=== PATIENT | female | born 1985 | race Two or more races ===

== ENCOUNTER 2017-03-06 07:16 | Emergency (ER) | payer SELFPAY ==
[~2017-03-06 07:16] MED LIST: ACET-704 PO; IBUP-1060 PO
[2017-03-06 07:32] VITALS: BP 129/59
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
[2017-03-06 08:05] LABS: BACTERIA,URINE 0 /HPF (0-FEW); BILIRUBIN,URINE NEGATIVE (NEG); GLUCOSE,URINE NEGATIVE (NEG); NITRITE,URINE NEGATIVE (NEG); PROTEIN,URINE NEGATIVE (NEG-TRACE); SQUAMOUS EPITHELIAL CELL,UR MANY /LPF; UROBILINOGEN,URINE 0.2 mg/dL (0.2 mg/dL)
[2017-03-06] MEDS ORDERED: METR500T PO (08:33)
--- NOTE | 2017-03-11 15:28 | VNOTE ---
CALL BACK NOTE CALL BACK Microbiology 03/06/17 Wet Prep - Final, Complete Patient is positive for chlamydia and was not treated. I attempted to call patient, her phone does not accept calls. LA GOLDSTEIN APRN March 11, 2017 15:28
== END 2017-03-06 08:47 | disposition home or self-care (01) ==
LOC: ER 07:16
DX: N92.6 Irregular menstruation, unspecified (principal); N76.0 Acute vaginitis
CPT/HCPCS: 81001; 81025; 87491; 87591; 99284; Q0111

== ENCOUNTER 2018-06-13 06:02 | Observation (INO) | payer SELFPAY ==
[2018-06-13] MEDS ORDERED: ACETAMINOPHEN 325 MG TABLET. PO (06:30)
[2018-06-13] MEDS ORDERED: IV RINGERS,LACTATED 1000ML 1,000 ML IV (06:30)
[2018-06-13 06:45] LABS: BILIRUBIN,URINE NEGATIVE (NEG); CLARITY,URINE CLEAR; COLOR,URINE YELLOW; GLUCOSE,URINE NEGATIVE (NEG); NITRITE,URINE NEGATIVE (NEG); PROTEIN,URINE NEGATIVE (NEG-TRACE)
[2018-06-13 07:15] LABS: BARBITURATES NEG (NEG); BENZODIAZEPINES NEG (NEG); CANNABINOIDS NEG (NEG); COCAINE NEG (NEG); METHADONE NEG (NEG); OPIATES NEG (NEG); PHENCYCLIDINE NEG (NEG)
[2018-06-13 07:16] LABS: BACTERIA,URINE MANY /HPF (0-FEW); SQUAMOUS EPITHELIAL CELL,UR MANY /LPF
[2018-06-13 07:18] LABS: AMPHETAMINE/METHAMPHETAMINE NEG (NEG); ETHANOL, URINE NEG (NEG)
== END 2018-06-13 07:53 | disposition home or self-care (01) ==
LOC: 3 SO LND 06:02
DX: O26.893 Other specified pregnancy related conditions, third trimester (principal); R10.2 Pelvic and perineal pain; Z3A.34 34 weeks gestation of pregnancy; Z79.899 Other long term (current) drug therapy
CPT/HCPCS: 80307; 81001; 87086; G0378; G0379

== ENCOUNTER 2018-10-31 11:47 | Emergency (ER) | payer SELFPAY ==
[~2018-10-31] VITALS: Ht 165.1 cm; Wt 84.1 kg
[~2018-10-31 11:47] MED LIST changes: +HYDR-3164 PO; +METR500T PO; +NAPR-514 PO
[2018-10-31] MEDS ORDERED: fentaNYL PF VIAL 100 MCG/2 ML VIAL ONE (12:21)
[2018-10-31 12:29] LABS: BILIRUBIN,URINE NEGATIVE (NEG); CLARITY,URINE CLEAR; COLOR,URINE YELLOW; NITRITE,URINE NEGATIVE (NEG); PROTEIN,URINE NEGATIVE (NEG-TRACE); UROBILINOGEN,URINE 0.2 mg/dL (0.2 mg/dL)
[2018-10-31] MEDS ORDERED: fentaNYL PF VIAL 100 MCG/2 ML VIAL IV ONE (12:30)
[2018-10-31] MEDS ORDERED: ONDANSETRON PF 4 MG/2 ML VIAL. IV ONE (12:30)
[2018-10-31 12:31] LABS: BASO % 1 % (0-3); EOS # 0.1 x10^3/uL (0.0-0.7); EOS % 1 % (0-3); HEMATOCRIT 39.7 % (36.0-47.0); HEMOGLOBIN 13.6 g/dL (12.0-15.5); LYMPH % 36 % (24-48); MEAN CORPUSCULAR HEMOGLOBIN 29 pg (25-35); MEAN CORPUSCULAR HGB CONC 34 g/dL (31-37); MEAN CORPUSCULAR VOLUME 85 fL (79-100); MONO # 0.4 x10^3/uL (0.0-1.1); MONO % 7 % (0-9); NEUT # 3.1 x10^3uL (1.8-7.7); NEUT % 56 % (31-73); PLATELET COUNT 275 x10^3/uL (140-400); RED BLOOD COUNT 4.69 x10^6/uL (3.50-5.40); RED CELL DISTRIBUTION WIDTH 17.1 % (11.5-14.5); WHITE BLOOD COUNT 5.6 x10^3/uL (4.0-11.0)
[2018-10-31 12:39] LABS: CALCIUM 9.1 mg/dL (8.5-10.1); CREATININE 0.6 mg/dL (0.6-1.0); GFR 115.9; POTASSIUM 3.7 mmol/L (3.5-5.1)
[2018-10-31 12:41] LABS: SQUAMOUS EPITHELIAL CELL,UR MOD /LPF
[2018-10-31 12:43] LABS: AMORPHOUS SEDIMENT,UR PRESENT /HPF; BACTERIA,URINE FEW /HPF (0-FEW); RBC,URINE 0 /HPF (0-2)
[2018-10-31 12:45] LABS: DIRECT BILIRUBIN 0.1 mg/dL (0.0-0.2); TOTAL BILIRUBIN 0.5 mg/dL (0.2-1.0); TOTAL PROTEIN 7.7 g/dL (6.4-8.2)
[2018-10-31] MEDS ORDERED: MORPHINE SULFATE 10 MG/ML VIAL. IV ONE (13:00)
[2018-10-31] MEDS ORDERED: IOHEXOL 300 MG/ML 100ML VIAL. IV ONE (13:00)
[2018-10-31] MEDS ORDERED: CONTRAST GIVEN. MC PRN (13:15)
--- NOTE | 2018-10-31 13:28 | RAD ---
PQRS Compliance Statement: One or more of the following individualized dose reduction techniques were utilized for this examination: 1. Automated exposure control 2. Adjustment of the mA and/or kV according to patient size 3. Use of iterative reconstruction technique CT abdomen/pelvis with contrast 10/31/2018 12:58 PM INDICATION: Abdominal pain for 3 days. Right lower quadrant abdominal pain COMPARISON: None available TECHNIQUE: Multiple axial CT images of the abdomen and pelvis were obtained after the intravenous administration of 75 mL Omnipaque 300. Coronal and sagittal reformats are provided. FINDINGS: Lung bases are clear. Heart size is within normal limits. No suspicious hepatic lesions are identified. Spleen is normal in appearance. Adrenal glands are normal. No peripancreatic inflammation. Gallbladder is present without adjacent inflammatory changes. The abdominal aorta is normal in course and caliber. There are no pathologically enlarged lymph nodes in the abdomen and pelvis. There is no abdominal free fluid. There is no free intraperitoneal air. Small and large bowel are normal in caliber. There is no evidence for bowel obstruction. There are no pericolonic inflammatory changes. A normal, nondilated appendix is visualized without adjacent inflammatory changes. Calcified mesenteric lymph nodes are identified. The kidneys enhance symmetrically. There is no suspicious renal mass. There is no hydronephrosis. There are no suspected calculi within the kidneys, ureters or urinary bladder. There is a right adnexal cystic lesion measuring 7.7 x 5.5 cm. Follicular changes are identified in the left adnexa. Uterus is normal by CT. No suspicious osseous abnormality is identified. IMPRESSION: 1. Right adnexal cystic lesion measures 7.7 x 5.5 cm. Further evaluation with ultrasound is recommended to ensure perfusion to the ovary. Gynecologic evaluation may be of benefit. 2. Appendix is normal. Electronically signed by: Judi Jacobsen MD (10/31/2018 1:24 PM) [id number]
--- NOTE | 2018-10-31 14:11 | PHYS DOC ---
Past Medical History Past Medical History: No Pertinent History Past Surgical History: No Surgical History Alcohol Use: None Drug Use: None Adult General Chief Complaint Chief Complaint: ABDOMINAL PAIN HPI HPI Patient is a 33 year old female who presents with abdominal pain. Patient has had pain in the right lower quadrant over the last three days. Pain became worse this morning. No fever or chills. No vomiting but she does c/o nausea. No prior hx of similar symptoms. No prior abdominal surgical hx. Denies urinary symptoms or vaginal symptoms. LMP finished three days earlier. Review of Systems Review of Systems Constitutional: Denies fever or chills Eyes: Denies change in visual acuity HENT: Denies nasal congestion Respiratory: Denies cough or shortness of breath Cardiovascular: No additional information not addressed in HPI GI: as documented above : Denies dysuria Musculoskeletal: Denies back pain Integument: Denies rash or skin lesions Neurologic: Denies headache All other systems were reviewed and found to be within normal limits, except as documented in this note. Current Medications Current Medications Current Medications Medications (Trade) Dose Ordered Sig/Rupal Start Time Stop Time Status Last Admin Dose Admin Ceftriaxone Sodium (Rocephin) 1 gm 1X ONCE 10/31/18 15:15 10/31/18 15:16 DC 10/31/18 15:15 1 GM Fentanyl Citrate (Fentanyl 2ml Vial) 100 mcg STK-MED ONCE 10/31/18 12:21 10/31/18 12:23 DC Info (CONTRAST GIVEN -- Rx MONITORING) 1 each PRN DAILY PRN 10/31/18 13:15 11/02/18 13:14 Iohexol (Omnipaque 300 Mg/ml) 75 ml 1X ONCE 10/31/18 13:00 10/31/18 13:02 DC 10/31/18 13:05 75 ML Ketorolac Tromethamine (Toradol 30mg Vial) 30 mg 1X ONCE 10/31/18 15:15 10/31/18 15:16 DC 10/31/18 15:15 30 MG Morphine Sulfate (Morphine Sulfate) 4 mg 1X ONCE 10/31/18 14:30 10/31/18 14:31 DC 10/31/18 14:31 4 MG Ondansetron HCl (Zofran) 4 mg 1X ONCE 10/31/18 12:30 10/31/18 12:31 DC 10/31/18 12:25 4 MG Allergies Allergies Allergies Coded Allergies Type Severity Reaction Last Updated Verified No Known Drug Allergies 05/17/14 No Physical Exam Physical Exam Constitutional: Well developed, well nourished, no acute distress, non-toxic appearance HENT: Normocephalic, atraumatic, bilateral external ears normal, oropharynx moist Eyes: PERRLA, EOMI, conjunctiva normal Neck: Normal range of motion, no tenderness Cardiovascular:Heart rate regular rhythm, no murmur Lungs & Thorax: Bilateral breath sounds clear to auscultation Abdomen: Bowel sounds normal, soft, TTP over right lower quadrant Skin: Warm, dry, no erythema Back: No tenderness Extremities: No tenderness, no cyanosis Neurologic: Alert and oriented X 3, normal motor function, normal sensory function Psychologic: Affect normal, judgement normal Pelvic: normal female external genitalia, vaginal mucosa is moist and uninflamed. cervical OS with visualized with some clear, physiologic-appearing discharge. No CMT. Right adnexa is tender to manipulation. left adnexa normal. Current Patient Data Vital Signs Vital Signs Date Time Temp Pulse Resp B/P (MAP) Pulse Ox O2 Delivery O2 Flow Rate FiO2 10/31/18 14:31 22 99 Room Air 10/31/18 13:00 58 149/65 (93) 10/31/18 11:49 98.2 98.2 Lab Values Laboratory Tests Test 10/31/18 11:45 10/31/18 12:03 10/31/18 12:15 Urine Collection Type Unknown Urine Color Yellow Urine Clarity Clear Urine pH 6.0 Urine Specific [place] 1.025 Urine Protein Negative mg/dL (NEG-TRACE) Urine Glucose (UA) Negative mg/dL (NEG) Urine Ketones (Stick) Negative mg/dL (NEG) Urine Blood Negative (NEG) Urine Nitrite Negative (NEG) Urine Bilirubin Negative (NEG) Urine Urobilinogen Dipstick 0.2 mg/dL (0.2 mg/dL) Urine Leukocyte Esterase Small (NEG) Urine RBC 0 /HPF (0-2) Urine WBC 11-20 /HPF (0-4) Urine Squamous Epithelial Cells Mod /LPF Urine Amorphous Sediment Present /HPF Urine Bacteria Few /HPF (0-FEW) Urine Mucus Marked /LPF POC Urine HCG, Qualitative Hcg negative (Negative) White Blood Count 5.6 x10^3/uL (4.0-11.0) Red Blood Count 4.69 x10^6/uL (3.50-5.40) Hemoglobin 13.6 g/dL (12.0-15.5) Hematocrit 39.7 % (36.0-47.0) Mean Corpuscular Volume 85 fL (79-100) Mean Corpuscular Hemoglobin 29 pg (25-35) Mean Corpuscular Hemoglobin Concent 34 g/dL (31-37) Red Cell Distribution Width 17.1 % (11.5-14.5) H Platelet Count 275 x10^3/uL (140-400) Neutrophils (%) (Auto) 56 % (31-73) Lymphocytes (%) (Auto) 36 % (24-48) Monocytes (%) (Auto) 7 % (0-9) Eosinophils (%) (Auto) 1 % (0-3) Basophils (%) (Auto) 1 % (0-3) Neutrophils # (Auto) 3.1 x10^3uL (1.8-7.7) Lymphocytes # (Auto) 2.0 x10^3/uL (1.0-4.8) Monocytes # (Auto) 0.4 x10^3/uL (0.0-1.1) Eosinophils # (Auto) 0.1 x10^3/uL (0.0-0.7) Basophils # (Auto) 0.0 x10^3/uL (0.0-0.2) Sodium Level 139 mmol/L (136-145) Potassium Level 3.7 mmol/L (3.5-5.1) Chloride Level 103 mmol/L (98-107) Carbon Dioxide Level 24 mmol/L (21-32) Anion Gap 12 (6-14) Blood Urea Nitrogen 15 mg/dL (7-20) Creatinine 0.6 mg/dL (0.6-1.0) Estimated GFR (Cockcroft-Gault) 115.9 Glucose Level 91 mg/dL (70-99) Calcium Level 9.1 mg/dL (8.5-10.1) Total Bilirubin 0.5 mg/dL (0.2-1.0) Direct Bilirubin 0.1 mg/dL (0.0-0.2) Aspartate Amino Transferase (AST) 20 U/L (15-37) Alanine Aminotransferase (ALT) 29 U/L (14-59) Alkaline Phosphatase 65 U/L (46-116) Total Protein 7.7 g/dL (6.4-8.2) Albumin 4.0 g/dL (3.4-5.0) Lipase 143 U/L (73-393) Laboratory Tests 10/31/18 12:15 Laboratory Tests 10/31/18 12:15 Microbiology 10/31/18 Wet Prep - Final, Complete EKG EKG [] Radiology/Procedures Radiology/Procedures FINDINGS: Lung bases are clear. Heart size is within normal limits. No suspicious hepatic lesions are identified. Spleen is normal in appearance. Adrenal glands are normal. No peripancreatic inflammation. Gallbladder is present without adjacent inflammatory changes. The abdominal aorta is normal in course and caliber. There are no pathologically enlarged lymph nodes in the abdomen and pelvis. There is no abdominal free fluid. There is no free intraperitoneal air. Small and large bowel are normal in caliber. There is no evidence for bowel obstruction. There are no pericolonic inflammatory changes. A normal, nondilated appendix is visualized without adjacent inflammatory changes. Calcified mesenteric lymph nodes are identified. The kidneys enhance symmetrically. There is no suspicious renal mass. There is no hydronephrosis. There are no suspected calculi within the kidneys, ureters or urinary bladder. There is a right adnexal cystic lesion measuring 7.7 x 5.5 cm. Follicular changes are identified in the left adnexa. Uterus is normal by CT. No suspicious osseous abnormality is identified. IMPRESSION: 1. Right adnexal cystic lesion measures 7.7 x 5.5 cm. Further evaluation with ultrasound is recommended to ensure perfusion to the ovary. Gynecologic evaluation may be of benefit. 2. Appendix is normal. Pelvic US: TRANSABDOMINAL SCAN Uterus measures 9.6 cm long by 5.7 cm AP by 6.0 cm wide. Ovaries cannot be visualized. TRANSVAGINAL SCAN Uterus: Endometrium measures 15 mm AP diameter. Homogeneous and mildly hyperechoic echotexture of the endometrium. No focal uterine mass is seen. Right ovary: * Size: 8.5 cm long axis. * Blood flow: Intact * Appearance: Contains a large 7.5 cm cyst. Left ovary: * Size: 3.0 cm long axis. * Blood flow: Intact * Appearance: No significant mass. Free fluid: None visualized IMPRESSION: 1. Large right ovarian cyst, measures 7.5 cm. Since cysts of this size can be difficult to completely assess with ultrasound, recommend consideration of outpatient MRI or surgical consultation, and short-term follow-up ultrasound. 2. Mild endometrial thickening at 15 mm. This could be a normal appearance for secretory phase of the menstrual cycle, and could also be further assessed on follow-up ultrasound. Course & Med Decision Making Course & Med Decision Making Pertinent Labs and Imaging studies reviewed. (See chart for details) Patient was evaluated in the emergency department for abdominal pain. Her workup was positive for pyuria. She was also noted to have a 7.5 cm cyst on the right ovary. The ovaries both had good flow. There were no additional acute findings. No leukocytosis. Pelvic exam was unremarkable. Pain was controlled in the ER after multiple doses of fentanyl and morphine which the patient tolerated very well. She had already taken norco at home without relief of symptoms. She is d/c'd to home with reglan, levaquin, ibuprofen and percocet for severe pain. I did discuss this patient with bottom ironer [employer]ATOR, Dr. Bailey, who was in agreement with the plan of care. Dragon Disclaimer Dragon Disclaimer This electronic medical record was generated, in whole or in part, using a voice recognition dictation system. Departure Departure Disposition: HOME, SELF-CARE Condition: GOOD Referrals: NO PCP (PCP) Scripts Oxycodone/Apap 5-325 (PERCOCET 5-325 MG TABLET ) 1 Each Tablet 2 EACH PO QID PRN for SEVERE PAIN, #25 TAB pain Prov: MEERY BUTTS DO 10/31/18 Levofloxacin (LEVAQUIN) 500 Mg Tablet 500 MG PO DAILY for 5 Days, #5 TAB Prov: EMERY BUTTS DO 10/31/18 Metoclopramide Hcl (REGLAN) 10 Mg Tablet 1 TAB PO TID for nausea, #10 TAB Prov: EMERY BUTTS DO 10/31/18 Ibuprofen (IBUPROFEN) 800 Mg Tablet 800 MG PO PRN TID PRN for PAIN, #30 TAB take with food or milk to avoid upsetting stomach Prov: EMERY BUTTS DO 10/31/18 EMERY BUTTS DO Oct 31, 2018 14:11
[2018-10-31] MEDS ORDERED: MORPHINE SULFATE 4 MG/ML VIAL. IV ONE (14:30)
--- NOTE | 2018-10-31 14:31 | RAD ---
Pelvic ultrasound Clinical Indication:rt adnexal mass. . TRANSABDOMINAL SCAN Uterus measures 9.6 cm long by 5.7 cm AP by 6.0 cm wide. Ovaries cannot be visualized. TRANSVAGINAL SCAN Uterus: Endometrium measures 15 mm AP diameter. Homogeneous and mildly hyperechoic echotexture of the endometrium. No focal uterine mass is seen. Right ovary: * Size: 8.5 cm long axis. * Blood flow: Intact * Appearance: Contains a large 7.5 cm cyst. Left ovary: * Size: 3.0 cm long axis. * Blood flow: Intact * Appearance: No significant mass. Free fluid: None visualized IMPRESSION: 1. Large right ovarian cyst, measures 7.5 cm. Since cysts of this size can be difficult to completely assess with ultrasound, recommend consideration of outpatient MRI or surgical consultation, and short-term follow-up ultrasound. 2. Mild endometrial thickening at 15 mm. This could be a normal appearance for secretory phase of the menstrual cycle, and could also be further assessed on follow-up ultrasound. Electronically signed by: Von Marquez MD (10/31/2018 2:27 PM) [id number]
[2018-10-31 15:00] VITALS: BP 114/55
[2018-10-31] MEDS ORDERED: METO10TA81 PO (15:02)
[2018-10-31] MEDS ORDERED: IBUP-1060 PO (15:02)
[2018-10-31] MEDS ORDERED: HYDR-3164 PO (15:02)
[2018-10-31] MEDS ORDERED: LEVO500T59 PO (15:08)
[2018-10-31] MEDS ORDERED: cefTRIAXone IV Push 1 GM VIAL. IVP ONE (15:15)
[2018-10-31] MEDS ORDERED: KETOROLAC 30 MG/ML VIAL. IV ONE (15:15)
[2018-10-31] MEDS ORDERED: OXYC1TAB15 PO (15:16)
[2018-11-02 19:15] LABS: GC PROBE Negative (Negative)
== END 2018-10-31 15:36 | disposition home or self-care (01) ==
LOC: ER 11:47
DX: N83.201 Unspecified ovarian cyst, right side (principal)
CPT/HCPCS: 36415; 74177; 76830; 76856; 80048; 80076; 81001; 81025; 83690; 85025; 87491; 87591; 96374; 96375; 96376; 99284; J0696; J1885; J2270; J2405; J3010; Q0111; Q9967

== ENCOUNTER 2019-10-21 14:40 | Emergency (ER) | payer SELFPAY ==
[~2019-10-21] VITALS: Ht 157.5 cm; Wt 68.0 kg
[~2019-10-21 14:40] MED LIST changes: +LEVO500T59 PO; +METO10TA81 PO; +OXYC1TAB15 PO
[2019-10-21 15:10] VITALS: BP 125/65
[2019-10-21] MEDS ORDERED: AMOX1TAB61 PO (15:30)
[2019-10-21] MEDS ORDERED: CODE1CAP8 PO (15:30)
--- NOTE | 2019-10-21 15:31 | PHYS DOC ---
Past Medical History Past Medical History: No Pertinent History Past Surgical History: No Surgical History Alcohol Use: None Drug Use: None Adult General Chief Complaint Chief Complaint: FLU SYMPTOM HPI HPI Patient is a 34-year-old female who presents with complaint of headache, dry cough, sore throat and sinus pain and drainage. Patient states that she's been running a fever at home over the last few days. She states that symptoms started 4 days ago. She denies any nausea or vomiting.[] Review of Systems Review of Systems Constitutional: Positive fever and chills [] HENT: Positive congestion and sore throat [] Respiratory: Admits to dry cough without shortness of breath [] Cardiovascular: No additional information not addressed in HPI [] Integument: Denies rash or skin lesions [] Neurologic: Complains of headache without focal weakness or sensory changes [] Allergies Allergies Allergies Coded Allergies Type Severity Reaction Last Updated Verified No Known Drug Allergies 05/17/14 No Physical Exam Physical Exam Constitutional: Well developed, well nourished, no acute distress, non-toxic appearance. [] HENT: Normocephalic, atraumatic, bilateral external ears normal, pharyngeal erythema without exudates is noted. Maxillary sinuses are painful with palpation and percussion. [] Cardiovascular:Heart rate regular rhythm, no murmur [] Lungs & Thorax: Bilateral breath sounds clear to auscultation [] Skin: Warm, dry, no erythema, no rash. [] Neurologic: Alert and oriented X 3, no focal deficits noted. [] Current Patient Data Vital Signs Vital Signs Date Time Temp Pulse Resp B/P (MAP) Pulse Ox O2 Delivery O2 Flow Rate FiO2 10/21/19 15:10 98.5 104 18 125/65 (85) 99 Room Air 98.5 EKG EKG [] Radiology/Procedures Radiology/Procedures [] Course & Med Decision Making Course & Med Decision Making Pertinent Labs and Imaging studies reviewed. (See chart for details) [] Dragon Disclaimer Dragon Disclaimer This electronic medical record was generated, in whole or in part, using a voice recognition dictation system. Departure Departure Impression: Primary Impression: Acute sinusitis Additional Impression: Migraine Disposition: 01 HOME, SELF-CARE Condition: STABLE Referrals: NO PCP (PCP) Patient Instructions: Migraine Headache, Sinusitis Scripts Codeine/Butalbital/Asa/Caffein (FIORINAL-COD [id number] CAP) 1 Each Capsule 1 EACH PO Q6HRS PRN for HEADACHE, #12 CAP Prov: KELLY MORALES Jr. DO 10/21/19 Amoxicillin/Potassium Clav (AUGMENTIN 875-125 TABLET) 1 Each Tablet 1 TAB PO BID for 10 Days, #20 TAB 0 Refills Prov: KELLY MORALES Jr. DO 10/21/19 Problem Qualifiers Primary Impression: Acute sinusitis Sinusitis location: maxillary Recurrence: non-recurrent Qualified Codes: J01.00 - Acute maxillary sinusitis, unspecified Additional Impression: Migraine Migraine type: unspecified Status migrainosus presence: without status migrainosus Intractability: not intractable Qualified Codes: G43.909 - Migraine, unspecified, not intractable, without status migrainosus KELLY MORALES Jr. DO Oct 21, 2019 15:31
== END 2019-10-21 15:55 | disposition home or self-care (01) ==
LOC: ER 14:40
DX: J01.00 Acute maxillary sinusitis, unspecified (principal); G43.909 Migraine, unspecified, not intractable, without status migrainosus; L53.9 Erythematous condition, unspecified; R50.9 Fever, unspecified; R09.81 Nasal congestion
CPT/HCPCS: 99283

== ENCOUNTER 2019-10-21 20:42 | Emergency (ER) | payer SELFPAY ==
[~2019-10-21] VITALS: Ht 157.5 cm; Wt 74.8 kg
[~2019-10-21 20:42] MED LIST changes: +AMOX1TAB61 PO; +CODE1CAP8 PO
[2019-10-21 22:36] VITALS: BP 129/65
--- NOTE | 2019-10-21 23:11 | PHYS DOC ---
Past Medical History Past Medical History: No Pertinent History Past Surgical History: No Surgical History Alcohol Use: None Drug Use: None Adult General Chief Complaint Chief Complaint: SORE THROAT HPI HPI Patient is a 34 year old female who presents a weird feeling after taking Excedrin. The patient states she momentarily had difficulty swallowing. She states she was seen here earlier today for migraine and for sore throat and prescribed Augmentin and Fioricet. The pharmacy didn't have your says that she decided to take Excedrin instead. The patient states she took Excedrin and felt weird and was unable swallow but then after she arrived to the ER she felt better. Review of Systems Review of Systems Constitutional: Denies fever or chills [] Eyes: Denies change in visual acuity, redness, or eye pain [] HENT: Reports sore throat. Respiratory: Denies cough or shortness of breath [] Cardiovascular: No additional information not addressed in HPI [] GI: Denies abdominal pain, nausea, vomiting, bloody stools or diarrhea [] : Denies dysuria or hematuria [] Musculoskeletal: Denies back pain or joint pain [] Integument: Denies rash or skin lesions [] Neurologic: Reports headache, denies focal weakness or sensory changes [] Endocrine: Denies polyuria or polydipsia [] Complete systems were reviewed and found to be within normal limits, except as documented in this note. Allergies Allergies Allergies Coded Allergies Type Severity Reaction Last Updated Verified No Known Drug Allergies 05/17/14 No Physical Exam Physical Exam Constitutional: Well developed, well nourished, no acute distress, non-toxic appearance. [] HENT: Normocephalic, atraumatic, bilateral external ears normal, oropharynx mois t, tonsils are 2+/4 with no oral exudates, nose normal. Patient is talking in full sentences. Eyes: PERRLA, EOMI, conjunctiva normal, no discharge. [] Neck: Normal range of motion, no tenderness, supple, no stridor. [] Cardiovascular:Heart rate regular rhythm, no murmur [] Lungs & Thorax: Bilateral breath sounds clear to auscultation [] Abdomen: Bowel sounds normal, soft, no tenderness, no masses, no pulsatile masses. [] Skin: Warm, dry, no erythema, no rash. [] Neurologic: Alert and oriented X 3, normal motor function, normal sensory function, no focal deficits noted. [] Psychologic: Affect normal, judgement normal, mood normal. [] Current Patient Data Vital Signs Vital Signs Date Time Temp Pulse Resp B/P (MAP) Pulse Ox O2 Delivery O2 Flow Rate FiO2 10/21/19 20:44 116 20 100 Room Air EKG EKG [] Radiology/Procedures Radiology/Procedures [] Course & Med Decision Making Course & Med Decision Making Pertinent Labs and Imaging studies reviewed. (See chart for details) The patient does not seem to having difficulty swallowing, does not have abnormal vital signs. The patient's oxygen saturations 100%. The patient will talk in full sentences. The patient is able to swallow and on assessment does not appear to be any obstruction. A medical screening exam was performed on this patient and the patient does not appear to be having a medical emergency. Her symptoms are not of sufficient severity and within reasonable medical probability it is unlikely the absence of immediate medical attention would result in placing the health of the individual (or, with respect to a woman, the health of the woman or her unborn child) in serious jeopardy, serious impairment to bodily functions, or serious dysfunction of any bodily organ or part. If , the patient is not in labor Dragon Disclaimer Dragon Disclaimer This electronic medical record was generated, in whole or in part, using a voice recognition dictation system. Departure Departure Impression: Primary Impression: Encounter for medical screening examination Referrals: NO PCP (PCP) SHAY AVILA APRN Oct 21, 2019 23:11
== END 2019-10-21 23:15 | disposition left against medical advice (07) ==
LOC: ER 20:42
DX: J02.9 Acute pharyngitis, unspecified (principal); R13.19 Other dysphagia; R51 Headache
CPT/HCPCS: 99281